=== PATIENT | female | born 2000 | race Hispanic/Latino ===

== ENCOUNTER 2025-07-15 13:13 | Emergency (ER) | payer OTHER ==
[~2025-07-15] VITALS: Ht 157.5 cm; Wt 77.8 kg
[2025-07-15] MEDS ORDERED: KETOROLAC TROMETHAMINE 30 MG/ML VIAL ONE (13:34)
[2025-07-15] MEDS ORDERED: DIPHENHYDRAMINE HCL INJ 50 MG/ML VIAL ONE (13:34)
[2025-07-15] MEDS ORDERED: METOCLOPRAMIDE HCL 10 MG/2ML VIAL ONE (13:34)
[2025-07-15] MEDS ORDERED: SODIUM CHLORIDE 0.9% 1000ML 1,000 ML ONE (13:35)
[2025-07-15] MEDS: METOCLOPRAMIDE HCL 10 MG/2ML VIAL IV ONE (14:11)
[2025-07-15] MEDS: DIPHENHYDRAMINE HCL INJ 50 MG/ML VIAL IV ONE (14:11)
[2025-07-15] MEDS: KETOROLAC TROMETHAMINE 30 MG/ML VIAL IV STA (14:11)
[2025-07-15] MEDS: SODIUM CHLORIDE 0.9% 1000ML 1,000 ML IV SCH (14:11)
[2025-07-15 14:50] VITALS: PULSE 74; RESP 20; TEMP 98.1; O2SAT 98
== END 2025-07-15 14:50 | disposition home or self-care (01) ==
LOC: FSED 13:25
DX: R42 Dizziness and giddiness (principal); G43.909 Migraine, unspecified, not intractable, without status migrainosus
CPT/HCPCS: 99284; J1200; J1885; J2765; J7030